=== PATIENT | female | born 1995 | race Caucasian/White ===

== ENCOUNTER 2020-07-13 08:29 | Outpatient (CLI) | payer OTHER, SELFPAY | END 2020-07-13 08:30 | disposition home or self-care (01) | LOC: CHSCOVIDVC 08:29 | PROVIDERS: PCP Family Medicine | DX: Z23 Encounter for immunization (principal) | CPT/HCPCS: 0011A; 91301 ==

== ENCOUNTER 2020-08-10 08:29 | Outpatient (CLI) | payer OTHER, SELFPAY | END 2020-08-10 08:30 | disposition home or self-care (01) | LOC: CHSCOVIDVC 08:29 | PROVIDERS: PCP Family Medicine | DX: Z23 Encounter for immunization (principal) | CPT/HCPCS: 0012A; 91301 ==

== ENCOUNTER 2021-05-12 09:20 | Outpatient (RCR) | payer OTHER, SELFPAY ==
--- NOTE | 2021-05-12 10:56 | REHOPWC ---
SEATING EVALUATION NOTIFICATION This is to notify provider that Jodie Renny Ojeda participated in a manual mobility device evaluation today. Recommendations were made specific to patient's needs. Seating Assessment documentation has been completed for detailed information on required equipment. The mobility device provider for this case is Mason. Please note that no further care plan will be developed on this account. [facility]. Please review, sign, date and return this discharge summary JOSEFA. I have been updated about the patient's current status and I agree with discharge from the above service at this time. Referring Physician Date
== END 2021-07-28 09:10 | disposition home or self-care (01) ==
LOC: ANHPT 09:20
PROVIDERS: PCP Family Medicine; Visit Provider Family Medicine
DX: Z46.89 Encounter for fitting and adjustment of other specified devices (principal)
CPT/HCPCS: 97163